=== PATIENT | male | born 1985 | race Caucasian/White ===

== ENCOUNTER 2018-04-02 14:28 | Emergency (ER) | payer SELFPAY ==
[~2018-04-02] VITALS: Ht 160 cm; Wt 90.9 kg
[~2018-04-02 14:28] MED LIST: NOCURR
[2018-04-02 16:00] VITALS: BP 130/87
== END 2018-04-02 16:10 | disposition home or self-care (01) ==
LOC: EMS 14:29
DX: L01.00 Impetigo, unspecified (principal); F17.210 Nicotine dependence, cigarettes, uncomplicated; F11.90 Opioid use, unspecified, uncomplicated
CPT/HCPCS: 99281